=== PATIENT | male | born 1945 | race Caucasian/White ===

== ENCOUNTER 2019-02-14 17:59 | Emergency (ER) | payer MEDICARE, OTHER | END 2019-02-14 19:53 | disposition home or self-care (01) | LOC: SCSER 17:59 | DX: T63.441A Toxic effect of venom of bees, accidental (unintentional), initial encounter (principal); F41.9 Anxiety disorder, unspecified; F32.9 Major depressive disorder, single episode, unspecified; I10 Essential (primary) hypertension; Z79.899 Other long term (current) drug therapy | CPT/HCPCS: 99283 ==

== ENCOUNTER 2020-01-07 23:41 | Emergency (ER) | payer MEDICARE, OTHER ==
[2020-01-08] MEDS ORDERED: HYDROcodone/Acetaminophen 5/325 mg Tablet ONE (00:27)
[2020-01-08 00:39] LABS: #Eosinphils 0.7 thou/uL (0.0-0.7); #Lymphocytes 1.8 thou/uL (1.20-3.40); #Monocytes 0.5 thou/uL (0.11-0.59); #Neutrophils 4.7 thou/uL (1.40-6.50); %Basophils 0.4 % (0.0-1.0); %Eosinophils 8.8 % (0.0-10.0); %Lymphocytes 22.9 % (21.0-51.0); %Monocytes 7.1 % (0.0-10.0); %Neutrophils 60.9 % (42.0-75.0); Hemoglobin 11.8 g/dL (14.0-18.0); Mean Corpuscular HGB CONC 34.9 g/dL (32.0-36.0); Mean Corpuscular Hemoglobin 31.9 pg (27.0-31.0); Mean Corpuscular Volume 91.5 fL (78.0-98.0); Mean Platelet Volume 8.1 fL (7.4-10.4); Platelet Count 201 thou/uL (130-400); RBC Distribution Width 11.7 % (11.5-14.5); Red Blood Cell (RBC) Count 3.69 mill/uL (4.70-6.10); White Blood Cell (WBC) Count 7.7 thou/uL (4.8-10.8)
[2020-01-08 01:01] LABS: ALT (SGPT) 13 U/L (8-55); AST (SGOT) 14 U/L (5-34); Albumin 3.9 g/dL (3.4-4.8); Alkaline Phosphatase 65 U/L (40-110); Anion Gap 10 mmol/L (10-20); BUN (Urea Nitrogen) 14 mg/dL (8.4-25.7); Bilirubin, Total 0.3 mg/dL (0.2-1.2); Calc. Creatinine Clearance 0 mL/min (70-130); Calcium 8.9 mg/dL (7.8-10.44); Carbon Dioxide 31 mmol/L (23-31); Chloride 99 mmol/L (98-107); Estimated GFR-MDRD 74; Globulin 2.6 g/dL (2.4-3.5); Glucose 237 mg/dL (83-110); Protein, Total 6.5 g/dL (5.8-8.1); Sodium 137 mmol/L (136-145)
[2020-01-08 01:02] LABS: Potassium 2.9 mmol/L (3.5-5.1)
[2020-01-08] MEDS ORDERED: diphenhydrAMINE 50 MG/ML VIAL ONE (01:29)
[2020-01-08] MEDS ORDERED: Famotidine/PF 20 mg/2ml Vial ONE (01:29)
[2020-01-08] MEDS ORDERED: methylPREDNISolone Sod Succ/PF 125 MG/2 ML VIAL ONE (01:29)
[2020-01-08 01:57] LABS: Bilirubin Negative (Negative); Blood, Urine Negative (Negative); Clarity Clear (Clear); Glucose, Urine (Dipstick) 300 mg/dL (Negative); Leukocyte Negative Leu/uL (Negative); Nitrite Negative (Negative); Protein, Urine (Dipstick) Negative (Neg-Trace); Urobilinogen Normal mg/dL (Less than 2)
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
[2020-01-08] MEDS ORDERED: Iopamidol-370 76% 500 ML 1 ML ONE (13:40)
== END 2020-01-08 04:45 | disposition home or self-care (01) ==
LOC: ERS 23:41
DX: S50.11XA Contusion of right forearm, initial encounter (principal); S20.312A Abrasion of left front wall of thorax, initial encounter; S20.311A Abrasion of right front wall of thorax, initial encounter; S30.811A Abrasion of abdominal wall, initial encounter; E04.1 Nontoxic single thyroid nodule; F41.9 Anxiety disorder, unspecified; E11.9 Type 2 diabetes mellitus without complications; F32.9 Major depressive disorder, single episode, unspecified; Z79.899 Other long term (current) drug therapy; Z79.84 Long term (current) use of oral hypoglycemic drugs; V43.52XA Car driver injured in collision with other type car in traffic accident, initial encounter
CPT/HCPCS: 36415; 70450; 71260; 72125; 74177; 80053; 81003; 85025; 93005; 96374; 96375; J1200; J2930; Q9967; S0028

== ENCOUNTER 2020-12-24 11:50 | Outpatient (CLI) | payer MEDICARE, OTHER ==
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
--- NOTE | 2020-12-24 12:10 | RAD ---
LEFT HIP 2 VIEWS: Date: 12/24/2020 HISTORY: Hip pain. FINDINGS: Femoral head contour is normal. Mild degenerative change is present with very mild spurring at the hi p joint. No acute osseous abnormality. IMPRESSION: Mild degenerative change. POS: [facility]
== END 2020-12-24 11:51 | disposition home or self-care (01) ==
LOC: BICRAD 11:50
PROVIDERS: ATTEND Family Medicine
DX: M25.551 Pain in right hip (principal); M25.552 Pain in left hip; Z00.00 Encounter for general adult medical examination without abnormal findings; M16.0 Bilateral primary osteoarthritis of hip

== ENCOUNTER 2022-01-31 16:18 | Outpatient (CLI) | payer MEDICARE, OTHER ==
[2022-01-31 17:08] LABS: #Eosinphils 0.9 10x3/uL (0.0-0.5); #Monocytes 0.5 10x3/uL (0.0-1.1); %Basophils 0.6 % (0.0-2.0); %Eosinophils 12.1 % (0.0-6.0); %Lymphocytes 24.1 % (18.0-47.0); %Monocytes 7.4 % (0.0-10.0); %Neutrophils 55.4 % (40.0-75.0); Hemoglobin 12.8 g/dL (13.5-17.5); Mean Corpuscular HGB CONC 34.3 g/dL (32.0-36.0); Mean Corpuscular Hemoglobin 30.8 pg (27.0-33.0); Mean Corpuscular Volume 89.9 fl (81.2-95.1); Mean Platelet Volume 10.5 fl (7.4-10.4); Platelet Count 222 10x3/uL (150-450); RBC Distribution Width 11.9 % (11.5-14.5); Red Blood Cell (RBC) Count 4.15 10x6/uL (4.32-5.72); White Blood Cell (WBC) Count 7.2 10x3/uL (3.5-10.5)
[2022-01-31 17:16] LABS: Prothrombin Time 10.8 sec (9.5-12.1)
[2022-01-31 17:18] LABS: Anion Gap 13 mmol/L (10-20); BUN (Urea Nitrogen) 18 mg/dL (8.4-25.7); Calc. Creatinine Clearance 0 mL/min (70-130); Calcium 8.8 mg/dL (7.8-10.44); Carbon Dioxide 31 mmol/L (23-31); Chloride 100 mmol/L (98-107); Glucose 109 mg/dL (83-110); Potassium 3.1 mmol/L (3.5-5.1); Sodium 141 mmol/L (136-145)
[2022-02-01 17:55] LABS: SARS-CoV-2 PCR by NAA Not Detected (NotDetected)
== END 2022-01-31 16:19 | disposition home or self-care (01) ==
LOC: LABBT 16:18
PROVIDERS: ATTEND Orthopaedic Surgery
DX: Z01.818 Encounter for other preprocedural examination (principal); M17.11 Unilateral primary osteoarthritis, right knee; Z20.822 Contact with and (suspected) exposure to COVID-19
CPT/HCPCS: 80048; 85025; 85610; 87081; U0003; U0005; 93005; 93010